=== PATIENT | male | born 1940 | race African-American/Black ===

== ENCOUNTER 2019-07-29 17:54 | Emergency (ER) | payer OTHER, MEDICAID ==
[~2019-07-29] VITALS: Ht 177.8 cm; Wt 90.0 kg
[2019-07-29 20:29] VITALS: BP 140/77
[2019-07-29] MEDS ORDERED: IBUPROFEN 600MG TABLET PO ONE (20:30)
== END 2019-07-29 21:00 | disposition home or self-care (01) ==
LOC: ER 17:54
DX: S20.212A Contusion of left front wall of thorax, initial encounter (principal); Z90.49 Acquired absence of other specified parts of digestive tract; W01.0XXA Fall on same level from slipping, tripping and stumbling without subsequent striking against object, initial encounter; Y93.89 Activity, other specified; Y92.018 Other place in single-family (private) house as the place of occurrence of the external cause
CPT/HCPCS: 99282

== ENCOUNTER 2019-08-14 12:37 | Emergency (ER) | payer OTHER ==
[~2019-08-14] VITALS: Ht 177.8 cm; Wt 91.0 kg
[2019-08-14] MEDS ORDERED: IBUPROFEN 600MG TABLET PO STA (13:57)
[2019-08-14 14:45] VITALS: BP 143/78
== END 2019-08-14 14:55 | disposition home or self-care (01) ==
LOC: ER 12:37
DX: R07.89 Other chest pain (principal); W01.0XXA Fall on same level from slipping, tripping and stumbling without subsequent striking against object, initial encounter; Y93.89 Activity, other specified; Y92.098 Other place in other non-institutional residence as the place of occurrence of the external cause
CPT/HCPCS: 71045; 93005; 99283

== ENCOUNTER 2021-02-01 06:04 | Emergency (ER) | payer MEDICARE, MEDICAID ==
[~2021-02-01] VITALS: Ht 177.8 cm; Wt 84.0 kg
== END 2021-02-01 07:25 | disposition left against medical advice (07) ==
LOC: ER 06:04
DX: N40.1 Benign prostatic hyperplasia with lower urinary tract symptoms (principal); R33.8 Other retention of urine
CPT/HCPCS: 99281; A4315